=== PATIENT | male | born 1990 | race Caucasian/White ===

== ENCOUNTER → 2019-01-02 13:30 | Outpatient (CLI) | payer OTHER, SELFPAY ==
--- NOTE | 2019-01-02 | DI.US.S_ITS ---
PROCEDURE: US ABDOMEN COMPLETE INDICATIONS: epigastric pain TECHNIQUE: Real-time scanning was performed of the abdominal and retroperitoneal organs, with image documentation. COMPARISON: None. FINDINGS: Liver: Liver is normal in size and homogeneous in echotexture. Gallbladder: No gallstones. No gallbladder wall thickening, pericholecystic fluid or sonographic Parsons's sign. Biliary ducts: Intrahepatic bile ducts are non-dilated. Extrahepatic bile duct caliber measures 2.9 mm. Normal is 6-7 mm or less in diameter, or 10 mm or less post-cholecystectomy. Pancreas: Visualized portions of the pancreas are sonographically normal. Spleen: Spleen is normal in size and homogeneous in echotexture. Kidneys: Kidneys are normal in size and echotexture. Right kidney measures 10.1 cm long; left kidney measures 9.7 cm long. No hydronephrosis or nephrolithiasis. No solid masses. Aorta: Visualized aorta is normal in caliber at less than 3 cm. Iliacs: Proximal common iliac arteries are normal in caliber at less than 2.5 cm. IVC: Intrahepatic inferior vena cava is patent. Miscellaneous: No free abdominal fluid. IMPRESSION: Normal abdominal ultrasound exam. A cause for epigastric pain is not identified. Dictated by: Ozzy Enrique M.D. on 01/02/2019 at 16:40 Approved by: Ozzy Enrique M.D. on 01/02/2019 at 16:42
--- NOTE | 2019-01-02 | DI.ECHO.S_ITS ---
[place] +---------+ Hospital +---------+ : : [address] : : : : [place] : : : : [id number] : : : : Phone: [phone]+ Echocardiogram Report + + :Name: MONIQUE LADD Study Date: 01/02/2019 Height: 70 in : :[facility] Exam Location: IS Weight: 165 lb : : Gender: Male BSA: 1.9 m2 : :: 1990 Age: 28 yrs BP: 130/80 mmHg: :Reason For Study: Murmur/ Abnormal ECG/ LVH : : Performed By: Radha Page : :Referring: EIV HUA : + + Interpretation Summary The ejection fraction is estimated to be 60-65%. Left ventricular wall motion is normal. There is mild mitral regurgitation. The ascending aorta is at the upper limits of normal in size. A small echolucency is noted in the LVOT tract. No subaortic membrane is identified. There is minimal velocity acceleration across the left ventricular outflow tract. If subaortic stenosis is clinically suspected a ESA may be requested Procedure: A two-dimensional transthoracic echocardiogram with color flow and Doppler was performed. The study quality was technically good. There is no prior echocardiogram noted for this patient. The heart rate ranged between 45- 62 bpm during the study. The patient had occasional PACs during the exam. Left Ventricle: The LVOT velocity is 1.63 m/s. The left ventricular outflow velocity with valsalva is 1.74. The ejection fraction is estimated to be 60- 65%. Left ventricular wall motion is normal. Diastolic parameters suggest probable normal left ventricular diastolic function and normal filling pressures. Right Ventricle: The right ventricle is normal in size and function. Atria: The left atrium is moderately dilated. Right atrial size is normal. There is no Doppler evidence for an interatrial shunt. Mitral Valve: There is a flat closure plane of the the mitral valve leaflets. There is mild mitral regurgitation. Aortic Valve: The aortic valve is trileaflet. The aortic valve opens well. There is trace aortic regurgitation. Tricuspid Valve: The tricuspid valve is normal in structure and function. There is trace tricuspid regurgitation. Pulmonary artery pressures cannot be estimated because of the lack of a measurable TR jet velocity. Pulmonic Valve: The pulmonic valve is not well seen, but is grossly normal. There is mild pulmonic regurgitation. Great Vessels: The aortic root is normal size. The ascending aorta is at the upper limits of normal in size. The pulmonary artery is not well visualized, but is probably normal size. The IVC is dilated (diameter is greater than 2.1 cm) yet it collapses greater than 50% with a sniff. This suggests a right atrial pressure of 8 mm Hg. Pericardium/ Pleura There is no pericardial effusion. There is no pleural effusion. MMode/2D Measurements & Calculations LVIDd: 5.3 cm LVOT diam: 1.9 cm LVIDs: 3.2 cm Ao root diam: 3.2 cm FS: 39.4 % asc Aorta Diam: 3.4 cm EPSS: 0.50 cm IVSd: 0.70 cm LVPWd: 0.84 cm LV tyler. diameter/BSA (cm/m^2): 2.8 LV sys. diameter/BSA (cm/m^2): 1.7 LA A2 area: 26.2 cm2 RA long axis: 4.6 cm LA A4 area: 26.5 cm2 RA area: 16.5 cm2 LA length (vol): 6.6 cm RA vol: 50.8 ml LA vol: 88.7 ml RA : 26.4 ml/m2 LA vol index: 46.1 ml/m2 RVD1 (basal): 4.0 cm TAPSE: 3.1 cm Doppler Measurements & Calculations Ao V2 max: 179.4 cm/sec LVOT Max Wolfgang: 137.3 cm/sec Ao V2 mean: 123.1 cm/sec LV V1 max P.5 mmHg Ao max P.9 mmHg LV V1 VTI: 26.4 cm Ao mean P.7 mmHg CESAR(I,D): 2.3 cm2 Ao V2 VTI: 34.6 cm CESAR(V,D): 2.3 cm2 sev ratio: 0.76 CESAR indexed to BSA (cm^2/m^2): 1.2 MV E max wolfgang: 76.7 cm/sec PA V2 max: 119.3 cm/sec MV A max wolfgang: 48.7 cm/sec PA V2 mean: 82.7 cm/sec MV E/A: 1.6 PA mean P.0 mmHg Med Peak E' Wolfgang: 10.0 cm/sec PA Accel Time: 0.15 sec E/E' med: 7.7 Lat Peak E' Wolfgang: 17.3 cm/sec E/E' lat: 4.4 E/e' average: 6.1 MV dec time: 0.23 sec MV P1/2t: 68.4 msec MV P1/2t max wolfgang: 76.3 cm/sec SV(LVOT): 78.4 ml MVA(P1/2t): 3.2 cm2 Reading Physician:12:43 PM
--- NOTE | 2019-01-02 | DI.RAD.S_ITS ---
PROCEDURE: XR CHEST 2V INDICATIONS: LEFT VENTICULAR HYPERTROPHY/ BRADYCARDIA TECHNIQUE: 2 views of the chest were acquired. COMPARISON: None. FINDINGS: Surgical changes and devices: None. Lungs and pleura: Lungs are clear. No pleural effusions or pneumothorax. Mediastinum: Mediastinal contours are normal. Heart size is normal. Bones and chest wall: No suspicious bony abnormalities. Soft tissues appear unremarkable. IMPRESSION: Normal for age, source of current bradycardia symptoms is not seen. Dictated by: Sy Prince M.D. on 01/02/2019 at 14:11 Approved by: Sy Prince M.D. on 01/02/2019 at 14:11
== END ==
PROVIDERS: Visit Provider Family Medicine
DX: I34.0 Nonrheumatic mitral (valve) insufficiency (principal); I37.1 Nonrheumatic pulmonary valve insufficiency; I51.7 Cardiomegaly; R01.1 Cardiac murmur, unspecified; R00.1 Bradycardia, unspecified
CPT/HCPCS: 71046; 76700; 76706; 93306

== ENCOUNTER → 2019-02-05 09:26 | Outpatient (CLI) | payer OTHER, SELFPAY ==
--- NOTE | 2019-02-05 | DI.NM.S_ITS ---
PROCEDURE: NM HIDA WITH CCK PHARMACEUTICAL: 5.5 mCi Tc-99m mebrofenin IV; 1.5 mcg CCK IV. INDICATIONS: BILIARY COLIC TECHNIQUE: Following intravenous administration of Tc-99m mebrofenin, sequential anterior abdominal images were obtained. To evaluate the contractile response of the gallbladder in response to Cholecystokinin (CCK), sincalide (0.02 ?g/kg) was administered by slow intravenous infusion approximately 60 minutes after the administration of the radiopharmaceutical. Sequential imaging was continued for 30 minutes after the start of CCK infusion. Gallbladder ejection fraction was calculated. COMPARISON: None. FINDINGS: Biliary scan: There is normal tracer uptake and excretion by the liver. There is normal visualization of the intrahepatic ducts, common bile duct, and gallbladder. There is normal tracer transit into the duodenum. CCK stimulation: There is diminished contractile response of the gallbladder to CCK infusion. The calculated gallbladder ejection fraction is 14%; normal values are above 35%. It has been shown that any patient abdominal pain after CCK administration is related to the rate of CCK injection, rather than to any underlying gallbladder disease (Clinical Nuclear Medicine 2012; 37: 63-70. Journal of Nuclear Medicine 2014; 55: 1-9). IMPRESSION: Abnormal gallbladder ejection fraction. Finding is nonspecific and can be related to chronic cholecystitis versus biliary dyskinesia. Dictated by: Francia Patel MD, PhD on 02/05/2019 at 12:08 Approved by: Francia Patel MD, PhD on 02/05/2019 at 12:10
== END ==
PROVIDERS: PCP Family Medicine; Visit Provider Family Medicine
DX: K80.50 Calculus of bile duct without cholangitis or cholecystitis without obstruction (principal)
CPT/HCPCS: 78227; A9537; J2805

== ENCOUNTER 2019-04-06 10:43 | Day surgery (SDC) | payer OTHER, SELFPAY ==
--- NOTE | 2019-04-06 | PATH_ITS ---
[facility] Accession Number: [id number] . 01 Material submitted: . gastrointestinal site - GASTRIC ULCER BIOPSIES . 02 Diagnosis: Gastric Ulcer, Biopsies: Acute erosive gastritis. Negative for Helicobacter organisms by immunohistochemistry. Negative for intestinal metaplasia. Negative for dysplasia or malignancy. [facility]/04/10/2019 . 02 Electronically signed: . Colten Jacques MD, PhD, Pathologist NPI- [id number] . 01 Gross description: . GASTRIC ULCER BIOPSIES: Received in formalin are 2 fragment(s) of henderson, soft tissue measuring 0.1 x 0.1 x 0.1 cm to 0.3 x 0.2 x 0.1 cm which is entirely submitted and submitted entirely in 1 cassette(s) /DMC /DMC . 02 Microscopic: . An immunohistochemical stain is performed to evaluate for Helicobacter organisms and is negative. A control stain shows appropriate reactivity. . * This test was developed and its performance characteristics determined by [facility]. It has not been cleared or approved by the U.S. Food and Drug Administration. The FDA has determined that such clearance or approval is not necessary. This test is used for clinical purposes. It should not be regarded as investigational or for research. . 02 Pathologist provided ICD-10: K29.70 . 02 CPT . 345750, [id number] Performed at: 01 [facility] [address], [place], [place] [id number] MD Chema Hernandez MD Phone: [phone] Performed at: 02 [facility] [address] [place], [place] [id number] MD Zaida Phan MD Phone: [phone]
[2019-04-06 10:56] VITALS: BMI 24.4
[2019-04-06 11:15] VITALS: BP 114/71; PULSE 44; RESP 20; TEMP 36.6; O2SAT 100
[2019-04-06] MEDS: SODIUM CHLORIDE 0.9% 1,000 ML 200 ML IV (11:17)
--- NOTE | 2019-04-06 12:06 | PM.PREOP ---
Pre-operative Note Interval Note History & Physical reviewed/Exam performed by Physician: Yes Changes to H&P: No H&P completed within 30 days and has changed as indicated here:: Please see note from 03/14 for history and physical. ASA Class (for procedural sedation): I
[2019-04-06] MEDS: TETRACAINE/BENZOCAINE/BUTAMBEN (CETACAINE) BOTTLE 1 SPRAY TOP (12:10)
[2019-04-06] MEDS: LIDOCAINE 4% SOLN 50 ML 20 ML TOP (12:10)
--- NOTE | 2019-04-06 12:25 | PM.OP.ENDO ---
Operative Date/Time/Diagnoses Date of procedure: 04/06/19 Time of procedure: 12:25 Pre-op diagnosis: Nausea upper abdominal discomfort Post-op diagnosis: same (Gastric ulcers superficial pre-pyloric area) Procedure & Clinicians Study performed: EGD with cold biopsy Same procedure as scheduled: Yes Indications: Patient with upper abdominal symptoms. Rule out GI pathology in his upper tract Surgeon: Lux Mccabe Procedure Notes SCOAP/Timeout: Performed Procedure in detail: The patient had topical anesthetic applied to oropharynx. She was placed in left lateral decubitus position and underwent IV sedation directed by the surgeon consisting of fentanyl and Versed. A bite block was inserted and the scope was advanced through it into the esophagus. The esophagus was unremarkable. GE junction was noted at 47 cm from the incisors. It was normal in appearance. There were sharp demarcation between esophageal and gastric mucosa.. The stomach insufflated well. There were no lesions seen in the body or at the incisura. In the pre-pyloric area there was a superficial reddened ulcerative lesion which extended back to a slightly raised ulcer that appeared to be healing. The residual ulcer was minimal. The pyloric channel was widely patent. The duodenum was unremarkable to the 4th part. The scope was brought back into the stomach and retroflexed. The proximal stomach normal in appearance. The scope was straightened. Biopsies were taken of the ulcer area. The scope was then brought out through the esophagus again. No lesions were seen. The scope was removed and the patient tolerated the procedure well. Scope withdrawal time: Not applicable Sedation minutes: 11 Findings: gastric ulcer (Two lesions. Both in the pre-pyloric area.) Specimen(s): other (Biopsies of the ulcer areas) Complications: none Recommendations: Continue medication(s) (Omeprazole) Follow up: months (Three) Disposition: PACU
[2019-04-06] MEDS: MIDAZOLAM 5 MG/5 ML VIAL IV (12:26)
[2019-04-06] MEDS: fentaNYL 250 MCG/5 ML INJ IV (12:27)
[2019-04-06 12:30] VITALS: BP 104/58; PULSE 50; RESP 9; TEMP 36.4; O2SAT 92
[2019-04-06 12:35] VITALS: BP 119/69; PULSE 66; RESP 17; TEMP 36.3; O2SAT 97
[2019-04-06 12:40] VITALS: BP 104/68; PULSE 59; RESP 11; O2SAT 99
[2019-04-06 13:05] VITALS: BP 120/69; PULSE 48; RESP 16; TEMP 36.3; O2SAT 99
== END 2019-04-06 13:13 | disposition home or self-care (01) ==
PROVIDERS: PCP Family Medicine; Visit Provider Specialist
PROC: 0DJ08ZZ Inspection of Upper Intestinal Tract, Via Natural or Artificial Opening Endoscopic (ICD-10-PCS; CPT 43235; principal; 2019-04-06 11:45)
DX: K29.70 Gastritis, unspecified, without bleeding (principal); K25.9 Gastric ulcer, unspecified as acute or chronic, without hemorrhage or perforation; K21.9 Gastro-esophageal reflux disease without esophagitis
CPT/HCPCS: 43239; 99152; J2250; J3010

== ENCOUNTER → 2021-01-21 12:38 | Outpatient (CLI) | payer OTHER, SELFPAY ==
[2021-01-21] MEDS: COVID-19 VACC #1, MRNA(MOD) 100 MCG/0.5 ML VIAL IM (12:45)
== END ==
PROVIDERS: PCP Family Medicine; Visit Provider Internal Medicine
DX: Z23 Encounter for immunization (principal)
CPT/HCPCS: 0011A; 91301

== ENCOUNTER → 2021-02-18 12:02 | Outpatient (CLI) | payer OTHER, SELFPAY ==
[2021-02-18] MEDS: COVID-19 VACC #2, MRNA(MOD) 100 MCG/0.5 ML VIAL IM (12:10)
== END ==
PROVIDERS: PCP Family Medicine; Visit Provider Internal Medicine
DX: Z23 Encounter for immunization (principal)
CPT/HCPCS: 0012A; 91301

== ENCOUNTER → 2022-07-22 10:01 | Outpatient (CLI) | payer OTHER, MEDICAID, SELFPAY ==
[2022-07-22 19:08] LABS: Add Manual Diff / Slide Review NO; Basophils Absolute Auto 0 /uL (0-100); Basophils Percent Auto 0.9 % (0-2); Eosinophils Absolute Auto 200 /uL (0-450); Eosinophils Percent Auto 4.5 % (2-4); Hematocrit 44.1 % (41-53); Hemoglobin 15.5 g/dL (13.5-17.5); Lymphocytes Absolute Auto 1500 /uL (1100-4500); Lymphocytes Percent Auto 29.2 % (25-40); Mean Corpuscular Hemoglobin 29.4 PG (26-34); Mean Corpuscular Volume 83.8 fL (80-100); Monocytes Absolute Auto 400 /uL (0-900); Monocytes Percent Auto 6.9 % (3-14); Neutrophils Absolute Auto 3000 /uL (1500-7000); Neutrophils Percent Auto 58.5 % (50-75); Platelet Count 170 X10^3/uL (150-400); Red Blood Cell Count 5.26 X10^6/uL (4.5-5.9); Red Cell Distribution Width 12.3 % (11.6-14.8); White Blood Cell Count 5.1 X10^3/uL (4.5-11.0)
[2022-07-22 19:26] LABS: BUN Creatinine Ratio 22.6 (6-22); Blood Urea Nitrogen 19 mg/dL (9-20); Calcium 9.5 mg/dL (8.4-10.2); Carbon Dioxide 28 mmol/L (22-32); Chloride 102 mmol/L (98-107); Cholesterol 148 mg/dL (140-199); Estimated Glomerular Filt Rate > 60 mL/min (>60); Glucose 100 mg/dL (70-100); HDL Cholesterol 58 mg/dL (40-60); HEMOLYSIS < 15 (0-50); LDL Cholesterol Calculated 82 mg/dL (<100); Potassium 4.4 mmol/L (3.4-5.1); Sodium 142 mmol/L (137-145); Triglycerides 42 mg/dL (35-150)
== END ==
PROVIDERS: PCP Family Medicine; Visit Provider Family Medicine
DX: K21.9 Gastro-esophageal reflux disease without esophagitis (principal); Z13.1 Encounter for screening for diabetes mellitus; Z13.220 Encounter for screening for lipoid disorders; Z80.7 Family history of other malignant neoplasms of lymphoid, hematopoietic and related tissues
CPT/HCPCS: 80048; 80061; 85025

== ENCOUNTER → 2022-10-21 11:29 | Outpatient (CLI) | payer OTHER, MEDICAID, SELFPAY ==
[2022-10-21 19:54] LABS: C-Reactive Protein Quant < 0.5 mg/dL (<1.0)
[2022-10-21 20:21] LABS: Erythrocyte Sedimentation Rate 3 MM/HR (0-15)
== END ==
PROVIDERS: PCP Family Medicine; Visit Provider Physician Assistant Medical
DX: G89.29 Other chronic pain (principal); M25.531 Pain in right wrist; M25.532 Pain in left wrist; M54.41 Lumbago with sciatica, right side
CPT/HCPCS: 85651; 86140

== ENCOUNTER → 2022-11-11 11:46 | Outpatient (CLI) | payer OTHER, MEDICAID, SELFPAY ==
[2022-11-11 20:32] LABS: C-Reactive Protein Quant < 0.5 mg/dL (<1.0); Uric Acid 6.2 mg/dL (3.5-8.5)
[2022-11-11 20:37] LABS: Rheumatoid Factor < 8.6 IU/mL (<12.0)
[2022-11-11 20:39] LABS: Erythrocyte Sedimentation Rate 3 MM/HR (0-15)
== END ==
PROVIDERS: PCP Family Medicine; Visit Provider Physician Assistant Medical
DX: G89.29 Other chronic pain (principal); M25.531 Pain in right wrist; M25.532 Pain in left wrist; M54.41 Lumbago with sciatica, right side; M79.676 Pain in unspecified toe(s)
CPT/HCPCS: 84550; 85651; 86140; 86430